=== PATIENT | female | born 1945 | race Caucasian/White ===

== ENCOUNTER 2018-08-17 21:22 | Emergency (ER) | payer OTHER ==
[~2018-08-17] VITALS: Ht 152.4 cm; Wt 77.1 kg
[2018-08-17 21:43] VITALS: Ht 152.4 cm; Wt 77.1 kg
[2018-08-17 22:52] VITALS: BP 142/74
== END 2018-08-17 22:52 | disposition home or self-care (01) ==
LOC: ED 21:22
DX: H11.32 Conjunctival hemorrhage, left eye (principal); I10 Essential (primary) hypertension; Z98.890 Other specified postprocedural states
CPT/HCPCS: 82962